=== PATIENT | female | born 1990 | race Hispanic/Latino ===

== ENCOUNTER 2016-03-13 19:47 | Emergency (ER) | payer OTHER ==
[~2016-03-13] VITALS: Ht 152.4 cm; Wt 82.7 kg
[~2016-03-13 19:47] MED LIST: ONDA4TAB9 PO
[2016-03-13 19:53] VITALS: BP 109/76; PULSE 92; RESP 30; O2SAT 100
[2016-03-13] MEDS ORDERED: Ondansetron 2 mg/mL 2 mL Inj IVPUSH ONE (20:15)
[2016-03-13] MEDS ORDERED: Dextrose 5% 0.9% NaCl 1,000 ML IV ONE ×2 (20:15→22:15)
--- NOTE | 2016-03-13 20:15 | ED.REPORT ---
HPI-NVD Date of Service Mar 13, 2016 ED Provider: Artem Jean-Baptiste MD A 25 year old 5 week A1 female presents to the ED complaining of nausea and intractable vomiting that began 5 days ago. Her symptoms became increasingly worse earlier this morning and have been constant since onset. Patient also reports a fever of 100 F, increased urination and fatigue. She has been able to drink fluids but unable to eat. Patient take fluoxetine and vitamins.She denies dysuria, dizziness, lightheadedness or vaginal bleeding Nursing Notes Stated Complaint: VOMITING, 5WKS Chief Complaint: Female Abdominal Pain Nursing Notes Reviewed: Yes (Funium not reconciled) Allergies: Coded Allergies: No Known Allergies (Unverified , 07/04/15) Scheduled PRN Ondansetron ODT (Zofran ODT) 4 Mg Tablet 4 MG PO TID PRN PRN For Nausea Ondansetron ODT (Ondansetron ODT) 8 Mg Tab.rapdis 8 MG PO Q4H PRN PRN For Nausea Pyridoxine HCl (B-) 25 Mg Lozenge 25 MG PO Q6H PRN PRN For Nausea General Time Seen by MD: 20:10 Chief Complaint Vomiting Hx Obtained From: Patient Arrived By: Walk-in Onset Occurred: 5 days ago Symptom Duration: Since onset Location: : No pain Associated with: Reports: Fever Pertinent Negative: Pt denies other symptoms Recent Healthcare: No recent doctor visit, No recent hospitalization Past Medical History Past Medical History Notes: - 5 wks A1 Past Medical History Chronic headache Past Surgical History None reported. Smoking History Former Smoker Social History Alcohol Use: Denies alcohol use Drug Use: Denies drug use Other Social History: Good social support, Local resident Ambulatory Status Independent Review of Systems Constitutional: Reports: Fatigue, Fever (100F) GI: Reports: Nausea, Vomiting Neurologic: Denies: Change LOC, Dizziness, Lightheaded Complete sys rev & neg: except as marked. Respiratory: Denies: Shortness of breath Cardiovascular: Denies: Chest pain Female: Reports: (5 wks ), Urination increased, Denies: Dysuria, Vaginal bleeding - abnl Physical Exam Initial Vital Signs Vital Signs (First) Date Time Temp Pulse Resp B/P Pulse Ox O2 Delivery O2 Flow Rate FiO2 03/13/16 19:53 36.9 92 30 109/76 100 Room Air Initial VS: Reviewed, Vital signs abnormal (rr30) Neck: Supple, Non-tender, Full range of motion Extremities: Vascular intact, Neuro intact, No swelling, No tenderness Skin: Warm, Dry, No cyanosis Neurologic: Alert, Oriented, Nonfocal Psychiatric: Mood/affect normal, Behavior normal, Normal thought content General/Constitutional: Awake, Alert GENERAL: Patient appears fatigued Abdomen: Atraumatic, Soft, Non-tender ENT: Atraumatic, Airway patent, Mucous membranes moist ENT: Dry, chapped lips Respiratory / Chest: Atraumatic, Breath sounds NL, Breath sounds = bilat Cardiovascular: Heart rate NL, Regular rhythm, Heart sounds NL Back: Atraumatic, Inspection NL Head / Eyes: Atraumatic, Normocephalic, PERRL Interpretation & Diagnostics Lab Results Interpretation Result Diagram: 03/13/16202603/13/162026 Test 03/13/16 20:15 03/13/16 20:27 Urine Color Straw (YELLOW) Urine Appearance Clear (CLEAR,HAZY) Urine pH 6.5 (5.0-8.0) Urine Specific [place] <1.005 (1.003-1.035) Urine Protein Negativemg/dL (NEG,TRACE) Urine Glucose (UA) Negativemg/dL (NEGATIVE) Urine Ketones Negativemg/dL (NEGATIVE) Urine Occult Blood Negative (NEGATIVE) Urine Nitrite Negative (NEGATIVE) Urine Bilirubin Negative (NEGATIVE) Urine Urobilinogen Normalmg/dL (NORMAL) Urine Leukocyte Esterase Trace (NEGATIVE) Urine RBC 0-2/hpf (0-2) Urine WBC 0-5/hpf (0-5) Urine Epithelial Cells Many/hpf (NONE-MOD) Urine Crystals None seen (NONE SEEN) Urine Bacteria Few/hpf (NONE-FEW) Urine Hyaline Casts None/lpf (NONE) Urine Granular Casts None seen (NONE SEEN) Urine Waxy Casts None seen (NONE SEEN) Urine Red Blood Cell Casts None seen (NONE SEEN) Urine White Blood Cell Casts None seen (NONE SEEN) Urine Mucus None seen (None Seen) Urine Trichomonas None seen (NONE SEEN) Urine Yeast None (NONE SEEN) Urinalysis Comment None Urine Culture Reflexed Indicated White Blood Count 11.3th/mm3 (3.8-10.1) Red Blood Count 4.41mil/mm3 (3.90-5.20) Hemoglobin 13.4g/dL (12.0-15.6) Hematocrit 39.7% (35.0-46.0) Mean Corpuscular Volume 90.0fL (81-100) Mean Corpuscular Hemoglobin 30.4pg (27.0-35.0) Mean Corpuscular Hemoglobin Concent 33.8% (32.0-37.0) Red Cell Distribution Width 12.8% (12.3-15.4) Platelet Count 209bil/L (150-400) Neutrophils (%) (Auto) 75.1% (40-74) Lymphocytes (%) (Auto) 15.6% (14-46) Monocytes (%) (Auto) 8.0% (4-12) Eosinophils (%) (Auto) 0.6% (0-5) Basophils (%) (Auto) 0.3% (0-3) Sodium Level 135mEq/L (134-144) Potassium Level 3.9mEq/L (3.5-5.2) Chloride Level 97mEq/L (97-108) Carbon Dioxide Level 21mmol/L (18-29) Blood Urea Nitrogen 9mg/dL (6-20) Creatinine 0.68mg/dL (0.57-1.00) Estimat Glomerular Filtration Rate 151mL/min (>59) Glucose Level 107mg/dL (60-99) Calcium Level 9.5mg/dL (8.5-10.1) Total Bilirubin 0.3mg/dL (0.0-1.2) Aspartate Amino Transf (AST/SGOT) 22U/L (0-50) Alanine Aminotransferase (ALT/SGPT) 20U/L (0-32) Alkaline Phosphatase 67U/L (25-150) Total Protein 7.7g/dL (6.4-8.4) Albumin 4.5g/dL (3.4-5.0) HCG Beta Subunit [id number]/mL Hold Gupta Top Tube Received (Received) Lab Results Interpretation: : Positive CBC trace leukocytosis, normal in CMP normal with normal electrolytes Urine without markers of infection Re-Eval/Medical Decision Med Decision/Clinical Course This is a 25-year-old female newly diagnosed who presents complaining of nausea vomiting. This is her second , the first was terminated by an -but she notes that during that early she also had significant nausea and vomiting. Symptoms have worsened over the past 24 hours to keep anything down, reason she came in. She denies fevers chills or other symptoms. She denies any vaginal bleeding. The patient appears mildly fatigued, but not toxic. She does not appear severely dehydrated. Her abdomen is soft and nontender. She has normal vitals. An IV is placed received 2 L of D5 normal saline, she received ondansetron and promethazine with resolution of symptoms. She is able take by mouth in the department. She is much improved. He is being discharged with prescriptions for pyridoxine and some when necessary ondansetron and to follow up with her OB. Routine precautions reviewed. Pertinent information regarding hyperemesis provided. Source of Hx: Old records Re-Evaluation/Progress #1: Time of Eval: 21:09 Patient Status: Condition improved Re-Evaluation/Progress Note: Patient is rechecked. She is still feeling nauseous following ondansetron. Re-Evaluation/Progress #2: Time of Eval: 22:55 Patient Status: Condition improved, Pain resolved Re-Evaluation/Progress Note: Patient is rechecked. She reports that her pain has resolved. Patient is informed of her lab results anf diagnosis. All questions are addressed. She understands and agrees with the treatment plan. Differential Diagnosis: Positive: Dehydration (mild), , Negative: Acute gastroenteritis, Boerhaave syndrome, C. diff colitis, Crohn' s disease, Drug overdose, Drug toxicity, Food poisoning, Maru-Balderas syndrome , Migraine headache, Pancreatitis Counseled Regarding: Diagnosis, Lab results, Need for follow-up, When/why to return to ED Discharge & Departure Impression: Primary Impression: Hyperemesis gravidarum Disposition: Home Discharge Condition All VS Reviewed: Yes Condition: Stable Patient Instructions: Hyperemesis Gravidarum (GEN) Additional Instructions: 1. Your blood tests were normal. 2. This type of nausea and vomiting in early is called "hyperemesis gravidarum" 3. See printed information. 4. Start with take the vitamin B supplement pyridoxine which has been demonstrated to help with nausea. Take up to every 6 hours. 5. You can also take ondansetron 8mg (let dissolve under tongue) up to every 4 hours as needed. 6. Return if new or worsening symptoms 7. Follow up with your pollution control technician. Referrals: Yenni Torre MD (PCP) Gabo Attestation Portions of this note were transcribed by Elysia Childers. I, Dr. Jean-Baptiste personally performed the history, physical exam and medical decision-making; I reviewed and confirmed the accuracy of the information in the transcribed note. Signed by: Gabo Smith, 03/14/16 0000. copies to: Yenni Torre MD, Matthew F MD Mar 13, 2016 20:15 ELYSIA CHILDERS Mar 13, 2016 20:35
[2016-03-13 20:36] LABS: BASOPHILS % (AUTO) 0.3 % (0-3); EOSINOPHILS % (AUTO) 0.6 % (0-5); Mean Corpuscular Hemoglobin 30.4 pg (27.0-35.0); NEUTROPHILS % (AUTO) 75.1 % (40-74); Platelet Count 209 bil/L (150-400)
[2016-03-13 20:41] LABS: APPEARANCE,URINE CLEAR (CLEAR,HAZY); COLOR,URINE STRAW (YELLOW); OCCULT BLOOD,URINE NEGATIVE (NEGATIVE); PH,URINE 6.5 (5.0-8.0); UROBILINOGEN,URINE NORMAL (NORMAL)
[2016-03-13] MEDS ORDERED: Promethazine Inj 12.5 MG in Dextrose 5%-Pha MIX 50 ML IV ONE (21:05)
[2016-03-13] MEDS ORDERED: _Ondansetron ODT 4 mg Tablet PO PRN (23:00)
[2016-03-13 23:51] VITALS: BP 115/78; PULSE 86; RESP 18; O2SAT 99
[2016-03-13] MEDS ORDERED: PYRI25LO2 PO (23:56)
[2016-03-13] MEDS ORDERED: ONDA8TAB10 PO (23:56)
[2016-03-14 00:02] VITALS: BP 115/78; PULSE 86; RESP 18; O2SAT 99
== END 2016-03-14 00:03 | disposition home or self-care (01) ==
LOC: SED 19:47
DX: O21.0 Mild hyperemesis gravidarum (principal); O26.891 Other specified pregnancy related conditions, first trimester; R50.9 Fever, unspecified; R35.0 Frequency of micturition; R53.83 Other fatigue; Z3A.01 Less than 8 weeks gestation of pregnancy; Z87.891 Personal history of nicotine dependence
CPT/HCPCS: 36415; 80053; 81000; 81025; 84702; 85025; 87086; 87088; 96361; 96374; 96375; 99284; J2405; J2550; J7042